=== PATIENT | female | born 2000 | race Caucasian/White ===

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

== ENCOUNTER 2021-04-03 10:14 | Emergency (ER) | payer OTHER ==
[~2021-04-03] VITALS: Ht 149.9 cm; Wt 39.0 kg
[~2021-04-03 10:14] MED LIST changes: +NAPROSYN250 MG PO; +ONDANSETRON4 MG PO
[2021-04-03] MEDS ORDERED: ZPAK PO (11:06)
[2021-04-03 11:17] VITALS: BP 120/86
== END 2021-04-03 11:17 | disposition home or self-care (01) | DRG 153 ==
LOC: ED 10:14
DX: J06.9 Acute upper respiratory infection, unspecified (principal); Z20.822 Contact with and (suspected) exposure to COVID-19

== ENCOUNTER → 2021-07-24 | Outpatient (REF) ==
[~2021-07-24] MED LIST changes: +ZPAK PO
== END | disposition home or self-care (01) | DRG 866 ==
LOC: LAB 18:30
PROVIDERS: ATTEND Family Medicine
DX: B34.2 Coronavirus infection, unspecified (principal)

== ENCOUNTER 2021-12-15 16:47 | Emergency (ER) | payer OTHER ==
[~2021-12-15] VITALS: Ht 149.9 cm; Wt 42.0 kg
[~2021-12-15 16:47] MED LIST changes: +OMEPRAZOLE20 MG PO; +[UNRECOGNIZED DRUG - OTHER] PO
[2021-12-15 18:43] LABS: URINE BILIRUBIN - DIPSTICK NEGATIVE (NEGATIVE); URINE BLOOD DIPSTICK NEGATIVE (NEGATIVE); URINE COLOR YELLOW; URINE GLUCOSE - DIPSTICK NEGATIVE (NEGATIVE); URINE KETONE NEGATIVE (NEGATIVE); URINE LEUK ESTERASE NEGATIVE (NEGATIVE); URINE PH 7.5 (4.5-8.0); URINE PROTEIN - DIPSTICK 100 mg/dL (NEG-TRACE); URINE UROBILINOGEN - DIPSTICK 0.2 E.U./dL (0.2)
[2021-12-15 18:45] LABS: URINE NITRITE - DIPSTICK NEGATIVE (Negative)
[2021-12-15 18:52] LABS: URINE MUCUS FEW hpf (NONE-FEW); URINE SQUAMOUS EPITHELIAL CELL RARE EPI/hpf (0-FEW)
[2021-12-15] MEDS ORDERED: ZOFRAN4 MG/TAB PO (18:54)
[2021-12-15 19:01] VITALS: BP 118/63
== END 2021-12-15 19:04 | disposition home or self-care (01) | DRG 392 ==
LOC: ED 16:47
DX: R11.0 Nausea (principal); Z20.822 Contact with and (suspected) exposure to COVID-19

== ENCOUNTER 2022-12-05 16:32 | Emergency (ER) | payer OTHER ==
[~2022-12-05] VITALS: Ht 147.3 cm; Wt 42.0 kg
[~2022-12-05 16:32] MED LIST changes: +FATHER JOHNS PO; +MEDDOSEPAK PO; +ZOFRAN4 MG/TAB PO
[2022-12-05 16:38] VITALS: BP 149/89
[2022-12-05 16:45] VITALS: BP 136/87
[2022-12-05] MEDS ORDERED: AMOX/K CLAV875 M1 PO (16:53)
[2022-12-05 17:00] VITALS: BP 134/85
[2022-12-05 17:15] VITALS: BP 131/80
[2022-12-05 17:22] VITALS: BP 131/80
== END 2022-12-05 17:25 | disposition home or self-care (01) | DRG 605 ==
LOC: ED 16:32
DX: S00.87XA Other superficial bite of other part of head, initial encounter (principal); W54.0XXA Bitten by dog, initial encounter

== ENCOUNTER 2024-08-06 13:02 | Emergency (ER) | payer SELFPAY ==
[~2024-08-06] VITALS: Ht 147.3 cm; Wt 47.0 kg
[2024-08-06] VITALS (11 sets, daily range): BP systolic 127–145; BP diastolic 84–102
[~2024-08-06 13:02] MED LIST changes: +AMOX/K CLAV875 M1 PO
[2024-08-06 14:04] LABS: URINE BILIRUBIN - DIPSTICK Negative (NEGATIVE); URINE BLOOD DIPSTICK Negative (NEGATIVE); URINE GLUCOSE - DIPSTICK Negative (NEGATIVE); URINE KETONE Negative (NEGATIVE); URINE LEUK ESTERASE Negative (NEGATIVE); URINE NITRITE - DIPSTICK Negative (Negative); URINE PROTEIN - DIPSTICK 30 mg/dL (NEG-TRACE); URINE UROBILINOGEN - DIPSTICK 0.2 E.U./dL (0.2)
[2024-08-06 14:05] LABS: URINE COLOR Yellow; URINE EPITHELIAL CELLS MODERATE EPI/hpf (0-FEW); URINE MUCUS FEW hpf (NONE-FEW)
[2024-08-06 14:06] LABS: BASO% 0.2 % (0-3); EOS% 0.8 % (0-8); HEMATOCRIT 42.6 % (37.0-47.0); HEMOGLOBIN 14.1 g/dl (12.0-16.0); IMMATURE GRANULOCYTES 0.1 % (0.0-5.0); LYMPH% 23.6 % (15-41); MEAN CELL VOLUME 88.8 fL CALC (80.0-100.0); MEAN CORPUSCULAR HGB 29.4 pG CALC (26.0-32.0); MEAN CORPUSCULAR HGB CONC 33.1 g/dL CAL (32.0-36.0); MONO% 7.5 % (2-13); NEUT# 5.72 thou/uL (2.00-7.15); NEUT% 67.8 % (42-76); RED BLOOD COUNT 4.8 mill/uL (4.20-5.60); RED CELL DISTRI WIDTH 11.7 % (11.5-15.5)
[2024-08-06 14:20] LABS: ALBUMIN 5.1 g/dL (3.2-5.0); BILIRUBIN, TOTAL 0.4 mg/dL (0.02-1.3); CREATININE 0.6 mg/dL (0.5-1.0); POTASSIUM 3.5 mmol/l (3.5-5.1); TOTAL PROTEIN 8.4 g/dL (6.3-8.2)
== END 2024-08-06 16:47 | disposition home or self-care (01) | DRG 392 ==
LOC: ED 13:02
PROVIDERS: Nurse Practitioner Acute Care
DX: R10.2 Pelvic and perineal pain (principal)